=== PATIENT | male | born 1995 | race Asian ===

== ENCOUNTER 2017-01-30 02:26 | Emergency (ER) | payer OTHER ==
[~2017-01-30] VITALS: Ht 170.2 cm; Wt 60.0 kg
[2017-01-30 02:32] VITALS: TEMP 36.7; Ht 170.2 cm; Wt 60.0 kg
[2017-01-30] MEDS ORDERED: KETOROLAC TROMETHAMINE 30 MG/ML VIAL IV STA (02:54)
[2017-01-30 03:04] LABS: HEMATOCRIT 42.9 % (42-52); MEAN CELL VOLUME 85.5 fL (80-100); MEAN CORPUSCULAR HEMOGLOBIN 29.9 pg (25-34); MEAN PLATELET VOLUME 9.4 fL (7.4-10.4); PLATELET COUNT 198 K/uL (130-400); RED BLOOD COUNT 5.02 M/uL (4.7-6.1); WHITE BLOOD COUNT 7.59 K/uL (4.8-10.8)
[2017-01-30 03:20] LABS: ALT/SGPT 21 U/L (12-78); AST/SGOT 15 U/L (15-37); BLOOD UREA NITROGEN 10 mg/dl (7-18); BUN/CREATININE RATIO 10.4 (10-20); CALCIUM 8.6 mg/dl (8.5-10.1); CARBON DIOXIDE 28 mmol/L (21-32); CHLORIDE 107 mmol/L (98-107); GLUCOSE 103 mg/dl (70-99); POTASSIUM 3.7 mmol/L (3.5-5.1); SODIUM 142 mmol/L (136-145)
[2017-01-30 03:25] LABS: ALKALINE PHOSPHATASE 65 U/L (45-117)
[2017-01-30 03:58] LABS: BASO % 0.4 %; BASO ABS # 0.03 K/uL (0-0.2); COMPLETE YES; EOS % 2.2 %; IG% 0.1 %; LYMPH % 50.1 %; NEUT % 40.2 %
[2017-01-30 04:03] VITALS: BP 118/70; PULSE 78; O2SAT 98
--- NOTE | 2017-01-30 04:10 | EMERGENCY ROOM VISIT NOTE ---
History First contact with patient: 02:35 Chief Complaint: CHEST PAIN Stated Complaint: PRESSURE ON LEFT CHEST,PAIN IN LEFT ARM History of Present Illness The patient is a 21 year old male who presents to the Emergency Room with complaints of left-sided chest pain that radiates to his arm described as aching , ranging in severity 5 out of 10 for the past day. Nothing makes it better or worse. His father has heart disease. No family history of blood clots. He notes that 3 weeks ago that was similar. Patient denies dyspnea, fever, chills , cough, congestion, back pain, leg pain or swelling, abdominal pain, diaphoresis, lightheadedness or dizziness. Patient does smoke. He is traveled recently. Review of Systems See HPI for pertinent positives & negatives. A total of 10 systems reviewed and were otherwise negative. Past Medical/Surgical History None Social History Smoking Status: Current Every Day Smoker Alcohol Use: none Drug Use: none Occupation Status: [employer] student Current/Historical Medications No Active Prescriptions or Reported Meds Allergies Coded Allergies: No Known Allergies (Unverified , 01/30/17) Physical Exam Vital Signs Date Time Temp Pulse Resp B/P Pulse Ox O2 Delivery O2 Flow Rate FiO2 01/30/17 04:03 78 20 118/70 98 01/30/17 03:10 57 01/30/17 02:32 36.7 73 18 136/86 98 Room Air Pain Rating (0-10): 0 Physical Exam VITALS: Vitals are noted on the nurse's note and reviewed by myself. Vital signs stable. GENERAL: Pleasant male, in no acute distress, nondiaphoretic, well-developed well-nourished. SKIN: The skin was without rashes, erythema, edema, or bruising. There is no tenting of the skin. Capillary reflex less than 2 seconds. HEAD: Normocephalic atraumatic. EARS: External auditory canals clear, tympanic membranes pearly hewitt without erythema or effusion bilaterally. EYES: Pupils equal round and reactive to light and accommodation. Conjunctivae without injection, sclerae without icterus. Extraocular movements intact. NOSE: Patent, turbinates without inflammation or discharge. MOUTH: Mucous membranes moist. Pharynx without erythema or exudate. Uvula midline. Airway patent. Tongue does not deviate. NECK: Supple without nuchal rigidity. No lymphadenopathy. No thyromegaly. Cervical spine is nontender. No JVD. HEART: Regular rate and rhythm without murmurs gallops or rubs. Chest nontender to palpation LUNGS: Clear to auscultation bilaterally without wheezes, rales or rhonchi. No dullness to percussion. No retractions or accessory muscle use. ABDOMEN: Positive bowel sounds x 4. Normal tympanic percussion. Soft, nontender, without masses or organomegaly. Pennington sign negative. No guarding or rebound tenderness. MUSCULOSKELETAL: No muscle atrophy, erythema, or edema noted. NEURO: Patient was alert and oriented to person place and time. Normal sensation to light and sharp touch. No focal neurological deficits. Medical Decision & Procedures Laboratory Results 01/30/17 02:52 Red Blood Count 5.02, Mean Corpuscular Volume 85.5, Mean Corpuscular Hemoglobin 29.9, Mean Corpuscular Hemoglobin Concent 35.0, Mean Platelet Volume 9.4, Neutrophils (%) (Auto) 40.2, Lymphocytes (%) (Auto) 50.1, Monocytes (%) (Auto) 7.0, Eosinophils (%) (Auto) 2.2, Basophils (%) (Auto) 0.4, Neutrophils # (Auto) 3.05, Lymphocytes # (Auto) 3.80, Monocytes # (Auto) 0.53, Eosinophils # (Auto) 0.17, Basophils # (Auto) 0.03 01/30/17 02:52 Test 01/30/17 02:52 01/30/17 02:58 White Blood Count 7.59 K/uL (4.8-10.8) Red Blood Count 5.02 M/uL (4.7-6.1) Hemoglobin 15.0 g/dL (14.0-18.0) Hematocrit 42.9 % (42-52) Mean Corpuscular Volume 85.5 fL (80-100) Mean Corpuscular Hemoglobin 29.9 pg (25-34) Mean Corpuscular Hemoglobin Concent 35.0 g/dl (32-36) Platelet Count 198 K/uL (130-400) Mean Platelet Volume 9.4 fL (7.4-10.4) Neutrophils (%) (Auto) 40.2 % Lymphocytes (%) (Auto) 50.1 % Monocytes (%) (Auto) 7.0 % Eosinophils (%) (Auto) 2.2 % Basophils (%) (Auto) 0.4 % Neutrophils # (Auto) 3.05 K/uL (1.4-6.5) Lymphocytes # (Auto) 3.80 K/uL (1.2-3.4) Monocytes # (Auto) 0.53 K/uL (0.11-0.59) Eosinophils # (Auto) 0.17 K/uL (0-0.5) Basophils # (Auto) 0.03 K/uL (0-0.2) RDW Standard Deviation 39.8 fL (36.4-46.3) RDW Coefficient of Variation 12.8 % (11.5-14.5) Immature Granulocyte % (Auto) 0.1 % Immature Granulocyte # (Auto) 0.01 K/uL (0.00-0.02) Red Blood Cell Morphology Unremarkable Anion Gap 7.0 mmol/L (3-11) Est Creatinine Clear Calc Drug Dose 97.5 ml/min Estimated GFR () 122.4 Estimated GFR (Non- 105.6 BUN/Creatinine Ratio 10.4 (10-20) Calcium Level 8.6 mg/dl (8.5-10.1) Total Bilirubin 0.3 mg/dl (0.2-1) Direct Bilirubin < 0.1 mg/dl (0-0.2) Aspartate Amino Transf (AST/SGOT) 15 U/L (15-37) Alanine Aminotransferase (ALT/SGPT) 21 U/L (12-78) Alkaline Phosphatase 65 U/L (45-117) Troponin I < 0.015 ng/ml (0-0.045) Total Protein 7.5 gm/dl (6.4-8.2) Albumin 4.3 gm/dl (3.4-5.0) Lipase 142 U/L (73-393) Bedside D-Dimer 126 ng/mlFEU (0-450) Bedside Troponin I 0.000 ng/ml (0-0.045) Medications Administered Medications (Trade) Dose Ordered Sig/Luis Route Start Time Stop Time Status Last Admin Dose Admin Ketorolac Tromethamine (Toradol Inj) 30 mg NOW STAT IV 01/30/17 02:54 01/30/17 02:55 DC 01/30/17 02:54 30 MG ED Course Prior records/ancillary studies reviewed. Triage Nursing notes reviewed. Additional history obtained from friend. The patient's history was concerning for chest pain. Differential diagnosis: Etiologies such as cardiac ischemia, aortic dissection, pulmonary embolism, pneumonia, pneumothorax, musculoskeletal, infections, pericarditis, myocarditis , esophageal rupture, gastrointestinal, as well as others were entertained. Physical examination: As above. ER treatment provided: Toradol On reassessment the patient felt better. Diagnostic interpretation by me: The electrocardiogram was negative for pathologic change. Normal sinus, normal intervals, no acute ST-T wave changes. Impression normal sinus rhythm interpreted by myself The labs revealed negative carotid. Negative dimer Imaging studies: Chest x-ray with no acute consolidation, pneumothorax or free air per my interpretation Exam and history seem consistent with noncardiac chest pain. Patient had unremarkable workup as above. He felt much better after being medicated as above. He is advised to follow-up health services in a few days or here in the ER sooner for chest pain, difficulty breathing, worsening signs or symptoms or as needed. Patient had negative troponin. Normal EKG. Negative d-dimer.By the evaluation outlined above emergent etiologies such as cardiac ischemia, aortic dissection, pulmonary embolism, pneumonia, pneumothorax, infections, pericarditis, myocarditis, gastrointestinal, as well as others were deemed relatively unlikely. The pt informed about the findings as listed above. All questions were answered and pleased with the treatment. Return instructions were outlined and the patient was discharged in stable condition. Referral: The patient was referred back to primary care physician for follow-up in 2 to 3 days for a recheck of the current condition. Case reviewed with my attending Medical Decision As above Impression Primary Impression: Non-cardiac chest pain Departure Information Dispostion Home / Self-Care Condition GOOD Prescriptions No Active Prescriptions or Reported Meds Referrals No Doctor, Assigned (PCP) Forms HOME CARE DOCUMENTATION FORM, IMPORTANT VISIT INFORMATION Patient Instructions Chest Pain - [facility], [facility] Additional Instructions Ibuprofen(Motrin, Advil) may be used for fever or pain. Use 600mg every six hours as needed. Take with food. Avoid using more than 2400mg in a 24 hour period. Do not use 2400mg per day for more than three consecutive days without physician direction. Prolonged inappropriate use can lead to stomach upset or ulcers. (AND/OR) Acetaminophen(Tylenol) may be used for fever or pain. Use 1000mg every six hours as needed. Avoid using more than 3000mg in a 24 hour period. Rest and drink plenty of fluids as tolerated. Continue current medications. Avoid strenuous activities and anything that worsens your pain. Resume normal activities once your symptoms resolve. Return to the ER immediately for worsening or persistent chest pain, abdominal pain, vomiting, fevers, chest pains, difficulty breathing, worsening of your condition, or as needed. Follow up with your primary physician in 2-3 days for a recheck of your current condition.
--- NOTE | 2017-01-30 08:05 | DIAGNOSTIC IMAGING REPORT ---
CHEST ONE VIEW PORTABLE HISTORY: Left-sided CHEST PAIN COMPARISON: None. FINDINGS: The lungs are clear. Cardiac silhouette is normal in size. No pleural effusions. No pneumothorax. IMPRESSION: No acute process. Electronically signed by: Duncan Tobias M.D. 01/30/2017 8:02 AM Dictated Date/Time: 01/30/2017 8:02 AM
== END 2017-01-30 04:04 | disposition home or self-care (01) ==
LOC: C.EDB 02:29
DX: R07.89 Other chest pain (principal); F17.210 Nicotine dependence, cigarettes, uncomplicated

== ENCOUNTER 2017-02-20 02:32 | Emergency (ER) | payer OTHER ==
[~2017-02-20] VITALS: Ht 177.8 cm; Wt 60.6 kg
[2017-02-20 02:36] VITALS: Ht 177.8 cm; Wt 60.6 kg
[2017-02-20] MEDS ORDERED: DiphenhydrAMINE HCL 50 MG/ML VIAL IV STA (03:33)
[2017-02-20] MEDS ORDERED: METHYLPREDNISOLONE 125 MG VIAL IV STA (03:33)
[2017-02-20] MEDS ORDERED: SODIUM CHLORIDE 0.9% 1000ML 1,000 ML IV ONE (03:45)
[2017-02-20] MEDS ORDERED: PRED50TA PO (05:26)
[2017-02-20] MEDS ORDERED: EPP3/2 INJ (05:26)
[2017-02-20 05:40] VITALS: BP 124/71; PULSE 64; TEMP 36.7; O2SAT 100
--- NOTE | 2017-02-21 07:00 | EMERGENCY ROOM VISIT NOTE ---
History First contact with patient: 03:32 Chief Complaint: ALLERGIC REACTION Stated Complaint: ALLERGIC REACTION Nursing Triage Summary: Pt presents to triage for rash. Started about 3pm yesterday. 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 Denies any swelling to tongue. Rash to b/l arms, abdomen, back, and legs. No known allergies History of Present Illness The patient is a 22 year old male who presents to the Emergency Room with complaints of rash that began on his arms, abdomen, chest, and back for the past 12 hours. The patient's symptoms have worsened over the past one hour, to now include his face. He does not have swelling of his tongue or lips. The patient does not have known exposure to allergens, as he does not report any allergies. He has not tried new food or new medication. No new soaps or deodorants. The patient did try to take [id number] Benadryl, without relief. He has not had abdominal pain, nausea, or vomiting. He rates his discomfort a 5/10. Review of Systems More than 10 systems were reviewed and otherwise negative with the exception of history of present illness. 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 Vital signs stable. GENERAL: Well-developed, well-nourished, male, who is in no acute distress and resting comfortably. Patient is cooperative with the examination. EYES: Pupils equal round and reactive to light and accommodation. Conjunctivae without injection, sclerae without icterus. Extraocular movements intact. NOSE: Patent, turbinates without inflammation or discharge. MOUTH: Mucous membranes moist. Tonsils are not enlarged. Pharynx without erythema, blood, or exudate. Uvula midline. Airway patent. NECK: Supple without nuchal rigidity. No lymphadenopathy. No thyromegaly. Cervical spine is nontender. HEART: Regular rate and rhythm without murmurs gallops or rubs. LUNGS: Clear to auscultation bilaterally without wheezes, rales or rhonchi. No retractions or accessory muscle use. ABDOMEN: Positive normal bowel sounds x 4. Soft, nontender, without masses or organomegaly. No guarding or rebound tenderness. SKIN: The skin was with diffuse urticarial rash throughout the upper torso, upper extremities, lower extremities. Medical Decision & Procedures Medications Administered Medications (Trade) Dose Ordered Sig/Luis Route Start Time Stop Time Status Last Admin Dose Admin Diphenhydramine HCl (Benadryl Inj) 50 mg NOW STAT IV 02/20/17 03:33 02/20/17 03:34 DC 02/20/17 03:39 50 MG Methylprednisolone Sodium Succinate 125 mg 125 mg NOW STAT IV 02/20/17 03:33 02/20/17 03:34 DC 02/20/17 03:39 125 MG Sodium Chloride (Nss 1000ml) 1,000 ml @ 999 mls/hr Q1H1M ONCE IV 02/20/17 03:45 02/20/17 04:45 DC 02/20/17 03:39 999 MLS/HR ED Course Physical exam and history were performed. Nursing notes and EMR were reviewed. Patient appears to have allergic reaction to an unknown allergen. He has diffuse urticaria throughout. He states that his symptoms are worsening over the past one hour. IV access was established and the patient was given 125 mg IV Solu-Medrol and 25 mg IV Benadryl. He was placed on a court monitor. He was hydrated with normal saline. The patient was reevaluated multiple times throughout the course of his stay. He had significant improvement of his symptoms after hydration medication. The patient did not require epinephrine here in the department, and he felt well for discharge home. He will be given a continuation course of prednisone to use for the next several days. I will provide him a prescription for an EpiPen. He may use [id number] Benadryl. He was otherwise invited back to the ER with any new, worsening, or concerning symptoms. The chart was completed utilizing [employer] Speech Voice Recognition Software. Grammatical errors, random word insertions, pronoun errors, and incomplete sentences are an occasional consequence of this system due to software limitations, ambient noise, and hardware issues. Any formal questions or concerns about the content, text, or information contained within the body of this dictation should be directly addressed to the provider for clarification. . Medical Decision Differential diagnosis: Etiologies such as allergic reaction, anaphylaxis, urticaria, Adamson-Eric syndrome, toxic epidermal necrolysis, erythema multiforme, cellulitis, as well as others were entertained. Impression Primary Impression: Allergic reaction Departure Information Dispostion Home / Self-Care Condition GOOD Prescriptions Epinephrine (EPIPEN 2-BRANDEN) 0.3 Mg Inj 1 DOSE INJ DIRECTED for ALLERGIC REACTION, #1 APPLN 1 Refill Prov: Igor Mata PA-C 02/20/17 Prednisone (PREDNISONE) 50 Mg Tab 50 MG PO DAILY for 4 Days, #4 TAB Prov: Igor Mata PA-C 02/20/17 Referrals No Doctor, Assigned (PCP) Forms HOME CARE DOCUMENTATION FORM, IMPORTANT VISIT INFORMATION Patient Instructions My [facility] Additional Instructions You were seen and evaluated today on an emergency basis only. This is not a substitute for, or an effort to provide, complete comprehensive medical care. It is not possible to recognize and treat all injuries or illnesses in a single emergency department visit. For this reason it is recommended that you followup with [facility] or your primary care physician in the next 2-3 days for recheck of your condition. Take Benadryl 25-50 mg every 6 hours Take prednisone as prescribed You may use an EpiPen injection if you are having a severe allergic reaction. If you ever need to use this please seek immediate medical care afterwards You are welcome to return to the emergency department anytime with new, worsening, or concerning symptoms.
== END 2017-02-20 05:41 | disposition home or self-care (01) ==
LOC: C.EDB 02:33 → C.EDA 05:41
DX: T78.40XA Allergy, unspecified, initial encounter (principal); L50.0 Allergic urticaria; X58.XXXA Exposure to other specified factors, initial encounter; F17.210 Nicotine dependence, cigarettes, uncomplicated

== ENCOUNTER 2017-09-25 07:14 | Emergency (ER) | payer OTHER ==
[~2017-09-25] VITALS: Ht 177.8 cm; Wt 66.4 kg
[~2017-09-25 07:14] MED LIST: EPP3/2 INJ
[2017-09-25 07:21] VITALS: TEMP 36.6; Ht 177.8 cm; Wt 66.4 kg
[2017-09-25] MEDS ORDERED: ALUMINUM/MAGNESIUM SUSP 30 ML UDC PO STA (07:44)
--- NOTE | 2017-09-25 07:44 | EMERGENCY ROOM VISIT NOTE ---
History First contact with patient: 07:25 (Dennis Casillas MD) First contact with patient: 07:25 (Newton Gaffney D.O.) Chief Complaint: SHORTNESS OF BREATH Stated Complaint: SHORTNESS OF BREATH,ABDOMINAL PRESSURE,ANXIETY? History of Present Illness The patient is a 22 year old male who presents to the Emergency Room with complaints of shortness of breath and left chest pain. Started last night around 9-10pm, while sitting in front of computer. Severity 7/10, currently 6/10 , squeezing and pulsating sensation, no worse on exertion, lying down or inspiration. Associated with shortness of breath, diaphoresis, diarrhea (2 episodes of loose stool) and nausea. He denies palpitations, orthopnea or PND. Last long haul flight - 13 hours in April. No recent surgery. No calf pain. No family history of [place]. He reportedly had a full workup in [place] this summer and was told he needed to exercise more as the blood supply to his heart was poor - however he does not know what tests were done to confirm this ?XR or CT. He had an exam on Wednesday and has 4 more this week. Feels it is anxiety - previously with left chest pain weeks before on break with difficulty sleeping. (Dennis Casillas MD) Review of Systems Headache on Wednesday morning; Took Tylenol (1 tablet) and now resolved No cough, fevers, nasal congestion, chills. All other systems reviewed and otherwise negative other than HPI (Dennis Casillas MD) Past Medical/Surgical History Medical Problems: (1) Atypical chest pain (Newton Gaffney D.O.) PSHx Carney tooth extraction (Dennis Casillas MD) Social History Smoking Status: Former Smoker (quit 3 months ago, now takes e-cigarettes) Smokeless Tobacco Use: No Alcohol Use: none Drug Use: none Housing Status: lives with roommate Occupation Status: [employer] student (Dennis Casillas MD) Current/Historical Medications No Active Prescriptions or Reported Meds Physical Exam Vital Signs Date Time Temp Pulse Resp B/P (MAP) Pulse Ox O2 Delivery O2 Flow Rate FiO2 09/25/17 08:00 97 Room Air 09/25/17 07:21 36.6 74 20 158/95 100 Room Air (Mishock,Newton, D.O.) Physical Exam General Appearance: WD/WN, no apparent distress Head: normocephalic, atraumatic Eyes: normal inspection, PERRL, EOMI ENT: normal ENT inspection, pharynx normal Neck: supple, no adenopathy, no JVD, trachea midline Respiratory/Chest: chest non-tender, lungs clear, normal breath sounds, no respiratory distress, no accessory muscle use Cardiovascular: regular rate, rhythm, no murmur, normal peripheral pulses Abdomen / GI: normal bowel sounds, non tender, soft Back: no CVA tenderness Extremities: no calf tenderness, normal capillary refill 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 COMPARISON STUDY: Chest radiograph January 30, 2017. FINDINGS: Lung volumes are normal. Lungs are clear. No pneumothorax or pleural effusion is present. Pulmonary vascularity is normal. Cardiomediastinal silhouette is normal. IMPRESSION: No acute cardiopulmonary findings. Electronically signed by: Malik Trotter M.D. 09/25/2017 8:03 AM Dictated Date/Time: 09/25/2017 8:02 AM (Dennis Casillas MD) Medications Administered Medications (Trade) Dose Ordered Sig/Luis Route Start Time Stop Time Status Last Admin Dose Admin Al Hydroxide/Mg Hydroxide (Maalox Susp) 15 ml NOW STAT PO 09/25/17 07:44 09/25/17 07:47 DC 09/25/17 07:59 15 ML (Newton Gaffney, D.O.) ECG Indication: chest pain Rate (beats per minute): 64 Rhythm: normal sinus Findings: no acute ischemic change Change: no significant change (January 2017) (Dennis Casillas MD) ED Course Complete history and physical was performed by myself The patient was discussed with Dr Gaffney who separately performed history and examination The patient was reassured with a normal EKG and CXR and discharged in a stable condition to follow up with [facility] (Dennis Casillas MD) Medical Decision Prior records/ancillary studies reviewed. Triage Nursing notes reviewed. Additional history obtained from []. The patient's history was concerning for chest pain. Differential diagnosis: Etiologies such as cardiac ischemia, aortic dissection, pulmonary embolism, pneumonia, pneumothorax, musculoskeletal, infections, pericarditis, myocarditis , esophageal rupture, gastrointestinal, as well as others were entertained. Given previous negative workup, he is low risk and PERC negative therefore lab testing was not felt to be necessary. EKG was normal and CXR/examination ruled out pneumothorax therefore emergent etiologies such as those above were deemed relatively unlikely. The patient informed about the findings as listed above. All questions were answered and he was pleased with the management plan. Return instructions were outlined and the patient was discharged in stable condition. Referral: The patient was referred back to [facility] for follow-up in 2 to 3 days for a recheck of the current condition. (Dennis Casillas MD) Medication Reconcilliation Current Medication List: was personally reviewed by me (Dennis Casillas MD) Blood Pressure Screening Patient's blood pressure: Elevated blood pressure Blood pressure disposition: Elevated BP felt to be situational, Referred to PCP (Dennis Casillas MD) Impression Primary Impression: Atypical chest pain Departure Information Dispostion Home / Self-Care Condition GOOD Prescriptions No Active Prescriptions or Reported Meds Referrals No Doctor, Assigned (PCP) [facility] patient found to have high blood pressure and atypical chest pain. Please follow up in the next 2-3 days with a recheck blood pressure. Patient Instructions [facility] Additional Instructions CHEST PAIN INSTRUCTIONS: Ibuprofen(Motrin, Advil) may be used for fever or pain. Use 600mg every six hours as needed. Take with food. Avoid using more than 2400mg in a 24 hour period. Do not use 2400mg per day for more than three consecutive days without physician direction. Prolonged inappropriate use can lead to stomach upset or ulcers. This is available over the counter and typically comes in 200mg tablets. (AND/OR) Acetaminophen(Tylenol) may be used for fever or pain. Use 1000mg every eight hours as needed. Avoid using more than 3000mg in a 24 hour period. This is available over the counter. Read all the package inserts or medication information paperwork provided. If you have any questions or concerns call your primary provider, pharmacist or the ER for assistance. Rest and drink plenty of fluids as tolerated. Return to the ER immediately for worsening or persistent chest pain, abdominal pain, vomiting, fevers, chest pains, difficulty breathing, worsening of your condition, or as needed. Follow up with your primary physician in 2-3 days for a recheck of your current condition. Resident Tracking Resident Involvement: Resident Care Provided Care Provided: Adult ED (Dennis Casillas MD)
--- NOTE | 2017-09-25 08:05 | DIAGNOSTIC IMAGING REPORT ---
CHEST ONE VIEW PORTABLE CLINICAL HISTORY: Left-sided chest pain. COMPARISON STUDY: Chest radiograph January 30, 2017. FINDINGS: Lung volumes are normal. Lungs are clear. No pneumothorax or pleural effusion is present. Pulmonary vascularity is normal. Cardiomediastinal silhouette is normal. IMPRESSION: No acute cardiopulmonary findings. Electronically signed by: Malik Trotter M.D. 09/25/2017 8:03 AM Dictated Date/Time: 09/25/2017 8:02 AM
[2017-09-25 08:29] VITALS: BP 128/82; PULSE 58; O2SAT 99
--- NOTE | 2017-09-25 10:27 | EMERGENCY ROOM VISIT NOTE ---
History Report prepared by Ariana: Marielena Stephens Under the Supervision of: Dr. Newton Gaffney D.O. First contact with patient: 07:25 Chief Complaint: SHORTNESS OF BREATH Stated Complaint: SHORTNESS OF BREATH,ABDOMINAL PRESSURE,ANXIETY? History of Present Illness The patient is a 22 year old male who presents to the Emergency Room with complaints of shortness of breath beginning last night. The patient states that since last night he has also had left-sided chest pain but states that it does not radiate anywhere. He states that the pain came on when he was watching videos on his computer. He rates the pain at a 6/10 currently and states that it is a 7/10 at worst. The patient describes the pain as a squeezing sensation and states that it is not worse upon exertion, lying down, or inspiration. He also reports having diarrhea and a headache yesterday morning which he took Tylenol for. The patient denies having palpitations. He states that he was seen in the ED in January for atypical chest pain and that he had a 13 hour flight to [place] in April. The patient states that he is a [employer] student and that he had an exam yesterday, and has 4 exams next week. He reports a family history of heart disease and states that he quit smoking 3 months ago. Source of History: patient Onset: last night Position: other (global) Symptom Intensity: rated at a 6/10 Quality: other (shortness of breath) Associated Symptoms: + headache, + chest pain, + diarrhea Note: patient denies: palpitations Review of Systems See HPI for pertinent positives & negatives. A total of 10 systems reviewed and were otherwise negative. Past Medical & Surgical Medical Problems: (1) Atypical chest pain Family History Heart disease Social History Smoking Status: Former Smoker (quit 3 months ago, now takes e-cigarettes) Smokeless Tobacco Use: No Alcohol Use: none Drug Use: none Housing Status: lives with roommate Occupation Status: [employer] student Current/Historical Medications No Active Prescriptions or Reported Meds Allergies Coded Allergies: No Known Allergies (Unverified , 09/25/17) Physical Exam Vital Signs Date Time Temp Pulse Resp B/P (MAP) Pulse Ox O2 Delivery O2 Flow Rate FiO2 09/25/17 08:29 58 18 128/82 99 Room Air 09/25/17 08:00 97 Room Air 09/25/17 07:21 36.6 74 20 158/95 100 Room Air Physical Exam CONSTITUTIONAL/VITAL SIGNS: Reviewed / noted above. GENERAL: Non-toxic in appearance. INTEGUMENTARY: Warm, dry, and [place]. HEAD: Normocephalic. EYES: without scleral icterus or trauma. ENT/OROPHARYNX: clear and moist. LYMPHADENOPATHY/NECK: Is supple without lymphadenopathy or meningismus. RESPIRATORY: Lungs clear and equal. CARDIOVASCULAR: Regular rate and rhythm. GI/ABDOMEN: Soft and nontender. No organomegaly or pulsatile mass. No rebound or guarding. Normal bowel sounds. EXTREMITIES: Warm and well perfused. BACK: No CVA tenderness. NEUROLOGICAL: Intact without focal deficits. PSYCHIATRIC: normal affect. MUSCULOSKELETAL: Normally developed with good muscle tone. Medical Decision & Procedures ER Provider Diagnostic Interpretation: Radiology results as stated below per my review and radiologist interpretation: CHEST ONE VIEW PORTABLE CLINICAL HISTORY: Left-sided chest pain. COMPARISON STUDY: Chest radiograph January 30, 2017. FINDINGS: Lung volumes are normal. Lungs are clear. No pneumothorax or pleural effusion is present. Pulmonary vascularity is normal. Cardiomediastinal silhouette is normal. IMPRESSION: No acute cardiopulmonary findings. Electronically signed by: Malik Trotter M.D. 09/25/2017 8:03 AM Dictated Date/Time: 09/25/2017 8:02 AM Medications Administered Medications (Trade) Dose Ordered Sig/Luis Route Start Time Stop Time Status Last Admin Dose Admin Al Hydroxide/Mg Hydroxide (Maalox Susp) 15 ml NOW STAT PO 09/25/17 07:44 09/25/17 07:47 DC 09/25/17 07:59 15 ML ECG Indication: chest pain Rate (beats per minute): 64 Rhythm: normal sinus Findings: no acute ischemic change, no ectopy ED Course 0730: Previous medical records were reviewed. The patient was evaluated in room A12B by Dr. Casillas. A complete history and physical examination was performed. 0744: Ordered Maalox Susp 15 ml PO. 0755: Previous medical records were reviewed. The patient was evaluated in room A12B. A complete history and physical examination was performed. 0811: On reevaluation, the patient is resting. I discussed the results and findings with the patient. He verbalized agreement of the treatment plan. He was discharged home. Medical Decision the differential was considered includes acute myocardial infarction, acute coronary syndrome, myocarditis, pericarditis, pericardial effusions /tamponade, esophageal perforation, thoracic aortic dissection, pulmonary embolism, pneumonia, pneumothorax, pancreatitis, shingles, acute cholecystitis, perforated abdominal viscus. This is a 22-year-old male who presents to the ED with a chief complaint of noticing chest pain that started last night and continued to urinate today. He reported some positive nausea and diaphoresis associated with his symptoms. He denies any exertional symptoms. His vital signs are stable. His physical exam was normal. Chest x-ray did not show acute process and a twelve-lead EKG showed normal sinus rhythm. The patient was told results. He is felt to be stable for discharge and outpatient follow-up. Patient seen with resident. Medication Reconcilliation Current Medication List: was personally reviewed by me Blood Pressure Screening Patient's blood pressure: Elevated blood pressure Blood pressure disposition: Referred to PCP Impression Primary Impression: Precordial chest pain Scribe Attestation The scribe's documentation has been prepared under my direction and personally reviewed by me in its entirety. I confirm that the note above accurately reflects all work, treatment, procedures, and medical decision making performed by me. Departure Information Dispostion Home / Self-Care Prescriptions No Active Prescriptions or Reported Meds Referrals No Doctor, Assigned (PCP) Forms HOME CARE DOCUMENTATION FORM, IMPORTANT VISIT INFORMATION Patient Instructions My [facility]
== END 2017-09-25 08:31 | disposition home or self-care (01) ==
LOC: C.EDB 07:16 → C.EDA 08:31
DX: R07.2 Precordial pain (principal); R07.89 Other chest pain; Z87.891 Personal history of nicotine dependence; Z98.818 Other dental procedure status

== ENCOUNTER 2017-11-04 02:36 | Emergency (ER) | payer OTHER ==
[~2017-11-04] VITALS: Ht 170.2 cm; Wt 63.5 kg
[2017-11-04 02:39] VITALS: TEMP 37; Ht 170.2 cm; Wt 63.5 kg
[2017-11-04] MEDS ORDERED: ALUMINUM/MAGNESIUM SUSP 30 ML UDC ONE (03:15)
[2017-11-04] MEDS ORDERED: SODIUM CHLORIDE 0.9% 1000ML 1,000 ML IV ONE (03:15)
[2017-11-04] MEDS ORDERED: GI COCKTAIL PO ONE (03:15)
[2017-11-04] MEDS ORDERED: LIDOCAINE HCL 2% VISC SOLN 20 ML UDC ONE (03:15)
[2017-11-04 03:29] LABS: BASO % 0.2 %; BASO ABS # 0.01 K/uL (0-0.2); EOS % 1.5 %; EOS ABS # 0.09 K/uL (0-0.5); HEMATOCRIT 42.6 % (42-52); HEMOGLOBIN 14.7 g/dL (14.0-18.0); LYMPH % 46.5 %; LYMPH ABS # 2.76 K/uL (1.2-3.4); MEAN CELL VOLUME 85.9 fL (80-100); MEAN CORPUSCULAR HEMOGLOBIN 29.6 pg (25-34); MEAN CORPUSCULAR HGB CONC 34.5 g/dl (32-36); MEAN PLATELET VOLUME 9.1 fL (7.4-10.4); MONO % 8.1 %; MONO ABS # 0.48 K/uL (0.11-0.59); NEUT % 43.7 %; PLATELET COUNT 173 K/uL (130-400); RED CELL DISTRIBUTION WIDTH CV 12.7 % (11.5-14.5); WHITE BLOOD COUNT 5.94 K/uL (4.8-10.8)
[2017-11-04 03:48] LABS: ALBUMIN 4.1 gm/dl (3.4-5.0); CALCIUM 9.3 mg/dl (8.5-10.1); CREATININE 1.04 mg/dl (0.60-1.40); POTASSIUM 3.5 mmol/L (3.5-5.1)
[2017-11-04 03:51] LABS: TOTAL PROTEIN 7.8 gm/dl (6.4-8.2)
[2017-11-04 04:00] VITALS: BP 124/84
[2017-11-04 04:06] VITALS: PULSE 64; O2SAT 96
--- NOTE | 2017-11-04 06:40 | DIAGNOSTIC IMAGING REPORT ---
ABDOMEN 2VIEW W/PA CHEST RTN HISTORY: 22 years-old Male epigastric abd pain acute epigastric abdominal pain COMPARISON: Chest radiograph 09/25/2017 and 01/30/2017 TECHNIQUE: PA view of the chest with erect and supine views of the abdomen FINDINGS: Cardiomediastinal and hilar silhouettes are within normal limits. No pneumothorax, pleural effusion, focal airspace consolidation or overt pulmonary edema. Bones of the chest appear grossly intact. No pneumoperitoneum on the upright projection. No organomegaly or urolith identified. The left renal shadow is partially obscured by bowel gas. The bowel gas pattern appears nonobstructive. No pneumatosis. No fracture. IMPRESSION: Unremarkable acute abdominal series radiographs. The above report was generated using voice recognition software. It may contain grammatical, syntax or spelling errors. Electronically signed by: Terry Crowell M.D. 11/04/2017 6:39 AM Dictated Date/Time: 11/04/2017 6:37 AM
--- NOTE | 2017-11-05 06:59 | EMERGENCY ROOM VISIT NOTE ---
History First contact with patient: 02:43 Chief Complaint: ABDOMINAL PAIN Stated Complaint: BURNING SENSATION IN STOMACH,HEAD/NECK PAIN Nursing Triage Summary: Abdominal pain and diarrhea for several days. Also head and neck pain starting tonight. History of Present Illness The patient is a 22 year old male who presents to the Emergency Room with complaints of epigastric abdominal pain radiating into his chest for the past 4 or 5 days. The patient had worsening symptoms tonight, and states that he was not able to sleep after laying in bed for several hours because of the discomfort. The patient has had symptoms like this in the past. He previously has taken PPI's, but not recently. He was to have an upper endoscopy, but this never occurred. He is not having shortness of breath or distinct chest pain. No lower abdominal pain. No fevers or chills. He rates his discomfort a 5/10, burning-like sensation. Review of Systems More than 10 systems were reviewed and otherwise negative with the exception of history of present illness. Past Medical/Surgical History Medical Problems: (1) Atypical chest pain Family History Heart disease Social History Smoking Status: Current Every Day Smoker Alcohol Use: none Drug Use: none Housing Status: lives with roommate Occupation Status: [employer] student Current/Historical Medications No Active Prescriptions or Reported Meds Physical Exam Vital Signs Date Time Temp Pulse Resp B/P (MAP) Pulse Ox O2 Delivery O2 Flow Rate FiO2 11/04/17 04:06 64 96 11/04/17 04:00 18 124/84 11/04/17 03:51 62 98 11/04/17 03:30 127/87 11/04/17 03:21 74 98 11/04/17 03:16 74 98 Room Air 11/04/17 03:06 68 17 98 11/04/17 03:02 135/87 11/04/17 02:39 37.0 83 18 153/90 99 Room Air Physical Exam VITALS: Vitals are noted on the nurse's note and reviewed by myself. Vital signs stable. GENERAL: Well-developed, well-nourished, male, who is in no acute distress and resting comfortably. Patient is cooperative with the examination. MOUTH: Mucous membranes moist. Tonsils are not enlarged. Pharynx without erythema, blood, or exudate. Uvula midline. Airway patent. NECK: Supple without nuchal rigidity. No lymphadenopathy. No thyromegaly. Cervical spine is nontender. HEART: Regular rate and rhythm without murmurs gallops or rubs. LUNGS: Clear to auscultation bilaterally without wheezes, rales or rhonchi. No retractions or accessory muscle use. ABDOMEN: Positive normal bowel sounds x 4. Soft, nontender, without masses or organomegaly. No guarding or rebound tenderness. MUSCULOSKELETAL: No muscle atrophy, erythema, or edema noted. Full range of motion without joint tenderness in all extremities. Medical Decision & Procedures ER Provider Diagnostic Interpretation: ABDOMEN 2VIEW W/PA CHEST RTN HISTORY: 22 years-old Male epigastric abd pain acute epigastric abdominal pain COMPARISON: Chest radiograph 09/25/2017 and 01/30/2017 TECHNIQUE: PA view of the chest with erect and supine views of the abdomen FINDINGS: Cardiomediastinal and hilar silhouettes are within normal limits. No pneumothorax, pleural effusion, focal airspace consolidation or overt pulmonary edema. Bones of the chest appear grossly intact. No pneumoperitoneum on the upright projection. No organomegaly or urolith identified. The left renal shadow is partially obscured by bowel gas. The bowel gas pattern appears nonobstructive. No pneumatosis. No fracture. IMPRESSION: Unremarkable acute abdominal series radiographs. Laboratory Results 11/04/17 03:05 Red Blood Count 4.96, Mean Corpuscular Volume 85.9, Mean Corpuscular Hemoglobin 29.6, Mean Corpuscular Hemoglobin Concent 34.5, Mean Platelet Volume 9.1, Neutrophils (%) (Auto) 43.7, Lymphocytes (%) (Auto) 46.5, Monocytes (%) (Auto) 8.1, Eosinophils (%) (Auto) 1.5, Basophils (%) (Auto) 0.2, Neutrophils # (Auto) 2.60, Lymphocytes # (Auto) 2.76, Monocytes # (Auto) 0.48, Eosinophils # (Auto) 0.09, Basophils # (Auto) 0.01 11/04/17 03:05 Test 11/04/17 03:05 White Blood Count 5.94 K/uL (4.8-10.8) Red Blood Count 4.96 M/uL (4.7-6.1) Hemoglobin 14.7 g/dL (14.0-18.0) Hematocrit 42.6 % (42-52) Mean Corpuscular Volume 85.9 fL (80-100) Mean Corpuscular Hemoglobin 29.6 pg (25-34) Mean Corpuscular Hemoglobin Concent 34.5 g/dl (32-36) Platelet Count 173 K/uL (130-400) Mean Platelet Volume 9.1 fL (7.4-10.4) Neutrophils (%) (Auto) 43.7 % Lymphocytes (%) (Auto) 46.5 % Monocytes (%) (Auto) 8.1 % Eosinophils (%) (Auto) 1.5 % Basophils (%) (Auto) 0.2 % Neutrophils # (Auto) 2.60 K/uL (1.4-6.5) Lymphocytes # (Auto) 2.76 K/uL (1.2-3.4) Monocytes # (Auto) 0.48 K/uL (0.11-0.59) Eosinophils # (Auto) 0.09 K/uL (0-0.5) Basophils # (Auto) 0.01 K/uL (0-0.2) RDW Standard Deviation 40.0 fL (36.4-46.3) RDW Coefficient of Variation 12.7 % (11.5-14.5) Immature Granulocyte % (Auto) 0.0 % Immature Granulocyte # (Auto) 0.00 K/uL (0.00-0.02) Anion Gap 7.0 mmol/L (3-11) Est Creatinine Clear Calc Drug Dose 98.4 ml/min Estimated GFR () 115.9 Estimated GFR (Non- 100.0 BUN/Creatinine Ratio 18.1 (10-20) Calcium Level 9.3 mg/dl (8.5-10.1) Total Bilirubin 0.3 mg/dl (0.2-1) Aspartate Amino Transf (AST/SGOT) 14 U/L (15-37) Alanine Aminotransferase (ALT/SGPT) 21 U/L (12-78) Alkaline Phosphatase 53 U/L (45-117) Total Protein 7.8 gm/dl (6.4-8.2) Albumin 4.1 gm/dl (3.4-5.0) Globulin 3.7 gm/dl (2.5-4.0) Albumin/Globulin Ratio 1.1 (0.9-2) Lipase 121 U/L (73-393) Medications Administered Medications (Trade) Dose Ordered Sig/Luis Route Start Time Stop Time Status Last Admin Dose Admin Sodium Chloride 1,000 ml @ 999 mls/hr Q1H1M ONCE IV 11/04/17 03:15 11/04/17 04:15 DC 11/04/17 03:16 999 MLS/HR Al Hydroxide/Mg Hydroxide (Maalox Susp) 30 ml STK-MED ONCE .ROUTE 11/04/17 03:15 11/04/17 03:16 DC 11/04/17 03:17 30 ML Lidocaine HCl (Viscous Lidocaine 2% Soln) 20 ml STK-MED ONCE .ROUTE 11/04/17 03:15 11/04/17 03:16 DC 11/04/17 03:17 10 ML ED Course Physical exam and history were performed. Nursing notes, EMR, and Medication List were personally reviewed. Patient appears to have epigastric abdominal symptoms of pain and burning for the past several days. The patient has had this in the past. He does not appear toxic on examination. The patient was hydrated medicated as above. X- ray was performed. The patient's blood work is as above and was reviewed. He does not have a significantly elevated white blood cell count, anemia, bandemia, or significant electrolyte imbalance. Lipase and transaminases are not diagnostic. Plain films do not show acute process. Overall the patient appears well for discharge home. Repeat abdominal exam is not consistent with acute surgical abdomen. The patient will need to follow with his primary care physician, as upper endoscopy is likely the next best step for the patient. He was certainly related to the ER with any new, worsening, or concerning symptoms. The chart was completed utilizing [employer] Speech Voice Recognition Software. Grammatical errors, random word insertions, pronoun errors, and incomplete sentences are an occasional consequence of this system due to software limitations, ambient noise, and hardware issues. Any formal questions or concerns about the content, text, or information contained within the body of this dictation should be directly addressed to the provider for clarification. . Medical Decision Differential diagnosis: Etiologies such as appendicitis, diverticulitis, PUD, biliary pathology, UTI, pancreatitis, obstruction, mesenteric ischemia, aortic pathology, infections, inflammatory bowel disease, renal colic, as well as others were entertained. Impression Primary Impression: Epigastric abdominal pain Departure Information Dispostion Home / Self-Care Condition GOOD Prescriptions No Active Prescriptions or Reported Meds Forms HOME CARE DOCUMENTATION FORM, IMPORTANT VISIT INFORMATION Patient Instructions My [facility] Additional Instructions You were seen and evaluated today on an emergency basis only. This is not a substitute for, or an effort to provide, complete comprehensive medical care. It is not possible to recognize and treat all injuries or illnesses in a single emergency department visit. For this reason it is recommended that you followup with [facility] in the next 1-2 days for recheck of your condition. You are welcome to return to the emergency department anytime with new, worsening, or concerning symptoms.
== END 2017-11-04 04:24 | disposition home or self-care (01) ==
LOC: C.EDB 02:39
DX: R10.13 Epigastric pain (principal); F17.200 Nicotine dependence, unspecified, uncomplicated